=== PATIENT | male | born 1990 | race Caucasian/White ===

== ENCOUNTER 2017-06-01 16:45 | Emergency (ER) | payer SELFPAY | END 2017-06-01 17:19 | disposition left against medical advice (07) | LOC: E/R 16:45 | DX: Z53.21 Procedure and treatment not carried out due to patient leaving prior to being seen by health care provider (principal) ==

== ENCOUNTER 2017-09-20 00:31 | Emergency (ER) | payer MEDICAID | END 2017-09-20 02:20 | disposition home or self-care (01) | LOC: FTE 00:31 | DX: R00.2 Palpitations (principal) | CPT/HCPCS: 93005; 99283-25 ==

== ENCOUNTER 2017-10-02 15:12 | Emergency (ER) | payer SELFPAY, MEDICAID | END 2017-10-02 17:29 | disposition left against medical advice (07) | LOC: FTE 15:12 | DX: Z53.21 Procedure and treatment not carried out due to patient leaving prior to being seen by health care provider (principal) ==

== ENCOUNTER 2017-10-02 22:17 | Emergency (ER) | payer MEDICAID | END 2017-10-03 00:13 | disposition home or self-care (01) | LOC: FTE 10-03 00:13 | DX: R10.13 Epigastric pain (principal) | CPT/HCPCS: 99283; Z7502 ==

== ENCOUNTER 2017-10-06 12:47 | Emergency (ER) | payer MEDICAID ==
[2017-10-06] MEDS: LORAZEPAM 1 MG TAB PO (16:47)
[2017-10-06] MEDS ORDERED: LORAZEPAM 2 MG INJ IV (17:00)
== END 2017-10-06 18:54 | disposition home or self-care (01) ==
LOC: FTE 12:47
DX: F41.9 Anxiety disorder, unspecified (principal)
CPT/HCPCS: 71045; 93005; 99284-25

== ENCOUNTER 2017-10-13 08:05 | Emergency (ER) | payer MEDICAID ==
[2017-10-13 08:43] LABS: ADD MAN DIFF? NO
[2017-10-13 08:47] LABS: BASOPHILS % 0.3 % (0.0-2.0); EOSINOPHILS # 0.2 10^3/ul (0.0-0.5); EOSINOPHILS % 3.2 % (0.0-7.0); HEMATOCRIT 47.9 % (42.0-52.0); HEMOGLOBIN 17.1 g/dl (14.0-18.0); LYMPHOCYTES # 1.9 10^3/ul (0.8-2.9); LYMPHOCYTES % 30.6 % (15.0-51.0); MEAN CORPUSCULAR HEMOGLOBIN 31.6 pg (29.0-33.0); MEAN CORPUSCULAR HGB CONC 35.7 g/dl (32.0-37.0); MEAN CORPUSCULAR VOLUME 88.5 fl (82.0-101.0); MEAN PLATELET VOLUME 10.8 fl (7.4-10.4); MONOCYTE # 0.4 10^3/ul (0.3-0.9); MONOCYTES % 6.3 % (0.0-11.0); NEUTROPHIL # 3.8 10^3/ul (1.6-7.5); NEUTROPHILS % 59.3 % (39.0-77.0); PLATELET COUNT 179 10^3/UL (140-415); RED BLOOD COUNT 5.41 10^6/ul (4.70-6.10)
[2017-10-13 08:47] LABS: WHITE BLOOD COUNT 6.3 10^3/ul (4.8-10.8)
[2017-10-13 08:56] LABS: ADD UMIC NO; UR ASCORBIC ACID NEGATIVE (NEGATIVE); UR BACTERIA FEW /HPF (NONE SEEN); UR BILIRUBIN (Dip) NEGATIVE (NEGATIVE); UR BLOOD (Dip) NEGATIVE (NEGATIVE); UR CLARITY SLIGHTLY CLOUDY (CLEAR); UR COLOR YELLOW (YELLOW); UR GLUCOSE (Dip) NEGATIVE (NEGATIVE); UR KETONES (Dip) NEGATIVE (NEGATIVE); UR LEUKOCYTE ESTERASE (Dip) NEGATIVE Leu/ul (NEGATIVE); UR MUCUS FEW /HPF (NONE SEEN); UR NITRITE (Dip) NEGATIVE (NEGATIVE); UR RBC 1 /HPF (0-5); UR SPECIFIC GRAVITY (Dip) 1.016 (1.003-1.030); UR TOTAL PROTEIN (Dip) NEGATIVE (NEGATIVE); UR UROBILINOGEN (Dip) NEGATIVE (NEGATIVE); UR WBC 1 /HPF (0-5)
[2017-10-13 09:26] LABS: ALANINE AMINOTRANSFERASE 31 IU/L (13-69); ALBUMIN 4.5 g/dl (3.3-4.9); ALBUMIN/GLOBULIN RATIO 1.36; ALKALINE PHOSPHATASE 73 IU/L (42-121); ANION GAP 17 (8-16); ASPARTATE AMINO TRANSFERASE 22 IU/L (15-46); BILIRUBIN,INDIRECT 0.8 mg/dl (0-1.1); BILIRUBIN,TOTAL 0.8 mg/dl (0.2-1.3); BLOOD UREA NITROGEN 10 mg/dl (7-20); CALCIUM 9.3 mg/dl (8.4-10.2); CARBON DIOXIDE 25 mmol/L (21-31); CHLORIDE 108 mmol/L (97-110); CREATININE 0.86 mg/dl (0.61-1.24); GLUCOSE 113 mg/dl (70-220); LIPASE 172 U/L (23-300); POTASSIUM 3.9 mmol/L (3.5-5.1); SODIUM 146 mmol/L (135-144); TOTAL PROTEIN 7.8 g/dl (6.1-8.1)
[2017-10-13 09:37] LABS: TROPONIN-I < 0.010 ng/ml (0.000-0.120)
== END 2017-10-13 10:26 | disposition home or self-care (01) ==
LOC: FTE 08:05
DX: R00.2 Palpitations (principal)
CPT/HCPCS: 36415; 71045; 80053; 81001; 81003; 83690; 84484; 85025; 93005; 99285-25

== ENCOUNTER 2017-10-22 11:06 | Emergency (ER) | payer MEDICAID ==
[2017-10-22] MEDS: ASPIRIN 325 MG TAB PO (12:02)
[2017-10-22 12:55] LABS: TROPONIN-I < 0.010 ng/ml (0.000-0.120)
[2017-10-22] MEDS: LORAZEPAM 1 MG TAB PO (12:57)
== END 2017-10-22 13:55 | disposition home or self-care (01) ==
LOC: FTE 11:06
DX: F41.9 Anxiety disorder, unspecified (principal)
CPT/HCPCS: 82962; 84484; 93005; 99284-25

== ENCOUNTER 2017-10-28 21:52 | Emergency (ER) | payer SELFPAY, MEDICAID | END 2017-10-29 00:41 | disposition home or self-care (01) | LOC: FTE 21:52 | DX: M54.2 Cervicalgia (principal) | CPT/HCPCS: 72040; 99283-25 ==